=== PATIENT | female | born 1985 | race Caucasian/White ===

== ENCOUNTER 2017-02-11 22:15 | Emergency (ER) | payer OTHER, MEDICAID ==
[~2017-02-11] VITALS: Ht 180.3 cm; Wt 113.4 kg
[~2017-02-11 22:15] MED LIST: CEPHALEXIN 500500 M3 PO; FLOMAX PO; FOLGARD TABLET1 EAC1 PO; NORCO 5-325 TA1 EACH PO; ONDANSETRON HCL4 M2 PO; PERCOCET 5-3251 EACH PO; PRENATAL PO; PROAIR HFA8.5 GM; XANAX 0.5 MG0.5 M1 PO; ZOFRAN ODT4 MG PO; ZOLOFT
[2017-02-11] MEDS ORDERED: DICLEGIS DR 101 EACH (22:24)
[2017-02-11] MEDS ORDERED: ZANTAC 150MG T150 MG (22:24)
[2017-02-11 22:51] LABS: ABSOLUTE BASOPHILS 0.1 thou/uL (0.0-0.2); ABSOLUTE EOSINOPHILS 0.1 thou/uL (0.0-0.7); ABSOLUTE MONOCYTES 0.7 thou/uL (0.0-1.2); ABSOLUTE NEUTROPHILS 12.3 thou/uL (1.6-8.1); BASOPHILS 0.5 %; EOSINOPHILS 0.8 %; HEMATOCRIT 35.9 % (37.0-47.0); HEMOGLOBIN 11.8 gm/dL (12.0-15.0); LYMPHOCYTES 13.2 %; MCH 26.5 pg (26.0-34.0); MCHC 32.9 g/dL (28.0-37.0); MCV 80.5 fL (80.0-100.0); MONOCYTES 4.7 %; MPV 8.2 fl. (7.2-11.1); NUCLEATED RBCS 0 /100WBC; PLATELET COUNT* 247 thou/uL (150-400); POLYS 80.8 %; RBC 4.46 mil/uL (4.20-5.00); RDW-CV 14.3 % (10.5-14.5); WBC 15.2 thou/uL (4.0-11.0)
[2017-02-11 22:58] LABS: CALCIUM 8.1 mg/dL (8.5-10.1); CREATININE 0.8 mg/dL (0.6-1.3); POTASSIUM 3.6 mmol/L (3.5-5.1)
[2017-02-11 23:03] LABS: ALBUMIN 3.1 g/dL (3.4-5.0); TOTAL BILIRUBIN 0.2 mg/dL (<0.1-1.0); TOTAL PROTEIN 6.9 g/dL (6.4-8.2)
[2017-02-12] MEDS ORDERED: ZOFRAN ODT4 MG PO (00:16)
[2017-02-12 00:44] VITALS: BP 117/68
--- NOTE | 2017-02-13 13:06 | EKG ---
[place] [address] ELECTROCARDIOGRAM REPORT Name: SONAM MARKS Room: [facility]#: [id number] Admission: 02/11/17 Attend Phys: Discharge: 02/12/17 Date of : 87 Report #: [id number] THIS REPORT FOR: //name// [facility] ED Test Date: 2017-02-11 Test Time: 22:45:36 Pat Name: SONAM MARKS Department: Room: Gender: F [employer] Officer: OG He : 1985 Requested By: Eddy Traylor Order Number: [id number] MD: Flavio Arguello Measurements Intervals Kemp Rate: 76 P: 22 IN: 162 QRS: 24 QRSD: 98 T: 20 QT: 387 QTc: 436 Interpretive Statements Sinus rhythm No previous ECG available for comparison Electronically Signed On 02-13-2017 13:06:05 [employer] by Flavio Arguello [email or web address] <ELECTRONICALLY SIGNED> By: Flavio Arguello MD, [facility] 02/13/17 1306 [id number] Flavio Arguello MD, FACC /EPI
== END 2017-02-12 00:45 | disposition home or self-care (01) ==
LOC: M.ERS 22:15
PROVIDERS: Physician Assistant
DX: O99.613 Diseases of the digestive system complicating pregnancy, third trimester (principal); O99.333 Smoking (tobacco) complicating pregnancy, third trimester; O99.513 Diseases of the respiratory system complicating pregnancy, third trimester; K52.9 Noninfective gastroenteritis and colitis, unspecified; Z3A.30 30 weeks gestation of pregnancy